=== PATIENT | male | born 1940 | race Asian ===

== ENCOUNTER 2020-09-21 09:40 | Outpatient (CLI) | payer MEDICARE, OTHER ==
--- NOTE | 2020-09-21 10:42 | XRAY Report ---
PROCEDURE: Thoracic Spine 2 View INDICATIONS: UNSPECIFIED FALL, SEQUELA TECHNIQUE: 3 views of the thoracic spine were acquired. COMPARISON: None. FINDINGS: Bones: Upper thoracic spine is not well seen. Multilevel endplate osteophytes. No fractures or dislo cations. No suspicious bony lesions. Visualized ribs are intact. Soft tissues: No paravertebral stripe thickening. IMPRESSION: Multilevel degenerative disc disease. No acute fracture. No osseous lesion. If symptoms and/or clinic al suspicion for pathology continue, further assessment with repeat plain films, or advanced imaging (e.g., CT, MRI, or bone scan) is recommended for further assessment. Reviewed by: Vy Genao MD on 09/21/2020 10:41 AM [facility] Approved by: Vy Genao MD on 09/21/2020 10:41 AM [facility] Station ID: [id number]
--- NOTE | 2020-09-21 14:21 | XRAY Report ---
PROCEDURE: Lumbar Spine 2 View INDICATIONS: UNSPECIFIED FALL,SEQUELA TECHNIQUE: 2 views of the lumbar spine were acquired. COMPARISON: None. FINDINGS: No definite fracture identified. Scattered multilevel endplate spurring and diffuse facet arthropathy . Mild levocurvature. Diffuse moderate narrowing of the lumbar disc spaces. Extensive vascular calcification seen in the aorta. IMPRESSION: Extensive lumbar spondylosis. No definite fracture although exam sensitivity suboptimal due to discog enic changes. Reviewed by: Asif Gandhi MD on 09/21/2020 2:20 PM PST Approved by: Asif Gandhi MD on 09/21/2020 2:20 PM PST Station ID: [id number]
== END 2020-09-21 09:41 | disposition home or self-care (01) ==
LOC: DI 09:40
PROVIDERS: ATTEND Family Medicine
DX: M47.816 Spondylosis without myelopathy or radiculopathy, lumbar region (principal); M51.34 Other intervertebral disc degeneration, thoracic region; W19.XXXS Unspecified fall, sequela

== ENCOUNTER 2022-10-01 09:15 | Outpatient (CLI) | payer MEDICARE, OTHER | END 2022-10-01 09:16 | disposition E | LOC: EMS 09:15 | DX: I46.9 Cardiac arrest, cause unspecified (principal) | CPT/HCPCS: A0425; A0428 ==